=== PATIENT | female | born 1965 | race African-American/Black ===

== ENCOUNTER 2020-04-28 06:19 | Day surgery (SDC) | payer OTHER, BC ==
[2020-04-24 18:21] VITALS: BMI 36.5
[2020-04-28] MEDS ORDERED: LIDOCAINE HCL 2% (20ML MULTI-DOSE VIAL) ONE (07:15)
[2020-04-28] MEDS ORDERED: MIDAZOLAM HCL 2 MG/2 ML SINGLE DOSE VIAL ONE (07:36)
[2020-04-28] MEDS ORDERED: LIDOCAINE HCL/PF 2% SDV 5ML VIAL ONE (07:41)
[2020-04-28] MEDS ORDERED: PROPOFOL 20 ML ONE (07:42)
[2020-04-28] MEDS ORDERED: LIDOCAINE HCL 2% (50ML VIAL) INF ONE (07:58)
[2020-04-28 08:28] VITALS: TEMP 97.9
[2020-04-28 09:51] VITALS: BP 136/78; PULSE 76
== END 2020-04-28 09:51 | disposition home or self-care (01) ==
LOC: FASU 06:19
PROVIDERS: ATTEND Orthopaedic Surgery
PROC: 0LN70ZZ Release Right Hand Tendon, Open Approach (ICD-10-PCS; principal; 2020-04-28 07:59)
DX: M65.311 Trigger thumb, right thumb (principal)